=== PATIENT | female | born 1990 | race Hispanic/Latino ===

== ENCOUNTER 2018-01-31 23:40 | Observation (INO) | payer OTHER ==
[2018-02-01] MEDS ORDERED: Sodium Chloride 0.9% 1,000 ML IV STA (00:21)
--- NOTE | 2018-02-01 00:26 | ED PDOC ---
Arrival/HPI - General Chief Complaint: Abdominal Pain Time Seen by Provider: 02/01/18 00:12 Historian: Patient - History of Present Illness Narrative History of Present Illness (Text): 02/01/18 00:23 This 27 yo female with pmh GERD, presents to this Emergency department complaining of walt-umbilical and epigastric abdominal pain since this morning. Patient stated pain has worsen 2 hours ago with nausea. Patient noted 3 episodes of watery diarrhea this morning, but it has resolved. Patient denies vomiting, sob, cp, urinary symptoms, vaginal discharge or dizziness. Time/Duration: Other (see hpi) Quality: Aching Context: Home Past Medical History - Provider Review Nursing Documentation Reviewed: Yes - Tetanus Immunization Tetanus Immunization: Unknown - Past Medical History Past Medical History: No Previous - Psychiatric Hx Psychophysiologic Disorder: No Hx Substance Use: No - Surgical History Other/Comment: CYST REMOVED FRO L WRIST - Suicidal Assessment Feels Threatened In Home Enviroment: No Family/Social History - Physician Review Nursing Documentation Reviewed: Yes Family/Social History: Other (noncontributory) Smoking Status: Never Smoked Hx Alcohol Use: Yes Frequency of alcohol use: Socially Hx Substance Use: No Hx Substance Use Treatment: No Allergies/Home Meds Allergies/Adverse Reactions: Allergies ceftriaxone [From Rocephin] Allergy (Verified 02/01/18 00:17) RASH Home Medications: Home Meds Medication Instructions Recorded Confirmed Levocetirizine Dihydrochloride 5 mg PO DAILY 02/01/18 02/01/18 [Xyzal] Norgestimate-Ethinyl Estradiol 1 tab PO DAILY 02/01/18 02/01/18 [Tri-Sprintec 28 35 Mcg-0.25 mg] Review of Systems - Review of Systems Constitutional: Normal. absent: Fatigue, Weight Change, Fevers Eyes: Normal ENT: Normal Respiratory: Normal. absent: SOB, Cough, Sputum Cardiovascular: Normal. absent: Chest Pain Gastrointestinal: Abdominal Pain, Diarrhea, Nausea. absent: Vomiting Genitourinary Female: Normal. absent: Dysuria, Frequency, Hematuria Musculoskeletal: Normal Skin: Normal Neurological: Normal. absent: Headache, Dizziness, Focal Weakness, Gait Changes , Speech Changes Endocrine: Normal Hemo/Lymphatic: Normal Psychiatric: Normal Physical Exam Vital Signs Temp Pulse Resp BP Pulse Ox 02/01/18 00:11 98.0 F 81 18 135/77 100 Temperature: Afebrile Blood Pressure: Normal Pulse: Regular Respiratory Rate: Normal Appearance: Positive for: Well-Appearing, Non-Toxic, Comfortable Pain Distress: None Mental Status: Positive for: Alert and Oriented X 3 - Systems Exam Head: Present: Atraumatic, Normocephalic Pupils: Present: PERRL Extroacular Muscles: Present: EOMI Conjunctiva: Present: Normal Mouth: Present: Moist Mucous Membranes Neck: Present: Normal Range of Motion Respiratory/Chest: Present: Clear to Auscultation, Good Air Exchange. No: Respiratory Distress, Accessory Muscle Use Cardiovascular: Present: Regular Rate and Rhythm, Normal S1, S2. No: Murmurs Abdomen: Present: Tenderness (Mild epigastric tenderness.). No: Distention, Peritoneal Signs, Rebound, Guarding, Hernias Back: Present: Normal Inspection. No: CVA Tenderness Upper Extremity: Present: Normal Inspection. No: Cyanosis, Edema Lower Extremity: Present: Normal Inspection. No: Edema Neurological: Present: GCS=15, CN II-XII Intact, Speech Normal Skin: Present: Warm, Dry, Normal Color. No: Rashes Psychiatric: Present: Alert, Oriented x 3, Normal Insight, Normal Concentration Medical Decision Making ED Course and Treatment: 02/01/18 01:52 I spoke with ophthalmology surgical technician regarding patient history, physical exam finding , lab result, and CT finding. She stated she will see patient. 02/01/18 03:[address] Maryellen Canada regarding patient history, physical exam, labs, and CT results. She agreed with plan for admission. She also is aware ophthalmology surgical technician will see patient. 02/01/18 03:31 Patient agreed with plan for admission Re-evaluation Time: 03:31 Reassessment Condition: Re-examined, Improving,but remains with symptoms - Lab Interpretations Lab Results: 02/01/18 00:33 02/01/18 00:33 Lab Results 02/01/18 00:33: Sodium 142, Potassium 4.0, Chloride 104, Carbon Dioxide 25, Anion Gap 17, BUN 11, Creatinine 0.8, Est GFR ( Amer) > 60, Est GFR (Non- Af Amer) > 60, Random Glucose 112 H, Calcium 9.1, Magnesium 1.8, Total Bilirubin 0.5, AST 51 H, ALT 43, Alkaline Phosphatase 77, Total Protein 7.6, Albumin 4.3, Globulin 3.3, Albumin/Globulin Ratio 1.3, Lipase 42 02/01/18 00:33: WBC 13.4 H D, RBC 5.08, Hgb 14.0, Hct 40.9, MCV 80.5, MCH 27.6, MCHC 34.2, RDW 13.1, Plt Count 289, MPV 10.3, Gran % 72.6 H, Lymph % (Auto) 21.7 L, [place] % (Auto) 3.0, Eos % (Auto) 2.6, Baso % (Auto) 0.1, Gran # 9.69 H, Lymph # (Auto) 2.9, [place] # (Auto) 0.4, Eos # (Auto) 0.4, Baso # (Auto) 0.02 02/01/18 00:25: Urine Color Yellow, Urine Appearance Sl cloudy, Urine pH 6.0, Ur Specific [place] >= 1.030, Urine Protein >=300 H, Urine Glucose (UA) Negative , Urine Ketones Trace H, Urine Blood Negative, Urine Nitrate Negative, Urine Bilirubin Small H, Urine Urobilinogen 1.0 H, Ur Leukocyte Esterase Trace H, Urine RBC 0 - 2, Urine WBC 1 - 3, Ur Epithelial Cells Many, Urine Bacteria Small , Urine HCG, Qual Negative I have reviewed the lab results: Yes Interpretation: Abnormal lab values - RAD Interpretation Narrative RAD Interpretations (Text): 02/01/18 03:18 FINDINGS: LUNG BASES: No significant abnormality seen. ABDOMEN: LIVER: No acute abnormality of the liver identified. GALLBLADDER AND BILE DUCTS: No CT evidence of acute cholecystitis. No evidence of significant biliary ductal dilatation. PANCREAS: No CT evidence of acute pancreatitis. SPLEEN: No acute abnormality of the spleen identified. ADRENALS: No acute abnormality of the adrenal glands identified. KIDNEYS AND URETERS: No acute abnormality of the kidneys identified. No evidence of significant hydrouereteronephrosis. STOMACH AND BOWEL: Marked, diffuse wall thickening of the distal ileum, including the terminal ileum, highly suspicious for enteritis. There is adjacent fluid and fat stranding, compatible with inflammation, in the right lower abdomen and pelvis. The distal and terminal ileum are mildly dilated, most compatible with an associated mild ileus. The remainder of the small bowel appears nondilated, with no evidence of a diffuse small bowel obstruction. Otherwise, no significant abnormality of the bowel is identified. No acute abnormality of the stomach or duodenum identified. No evidence of diffuse colitis/pancolitis. No evidence of pneumatosis intestinalis. PELVIS: APPENDIX: Normal appendix is not seen, and there are postsurgical changes near the cecum, which are likely from prior appendectomy. Recommend clinical correlation. BLADDER: No acute abnormality of the bladder identified. REPRODUCTIVE:No acute abnormality of the reproductive organs is seen. No acute abnormality of the uterus identified. No evidence of large adnexal masses. ABDOMEN and PELVIS: INTRAPERITONEAL SPACE: Moderate amount of pelvic free fluid, more than expected on a physiologic basis. Small amount of free fluid in the right abdomen. No evidence of free air. BONES/JOINTS: No acute fractures or other acute bony abnormality noted. SOFT TISSUES: No acute abnormality of the visualized soft tissues is seen. VASCULATURE: No evidence of abdominal aortic aneurysm. No evidence of periaortic hemorrhage. LYMPH NODES: No evidence of diffuse lymphadenopathy. IMPRESSION: - Findings highly suspicious for diffuse, marked enteritis involving the distal ileum, including the terminal ileum. Crohn's enteritis is a possibility, in a patient of this age. Infectious enteritis is also in the differential diagnosis. - Small to moderate amount of pelvic and abdominal free fluid. - See above for remaining findings. Radiology Orders: 02/01/18 00:21 ABD & PELVIS IV CONTRAST ONLY [CT] Stat - Medication Orders Current Medication Orders: Discontinued Medications Sodium Chloride (Sodium Chloride 0.9%) 1,000 mls @ 1,000 mls/hr IV .Q1H STA Stop: 02/01/18 01:20 Last Admin: 02/01/18 00:39 Dose: 1,000 mls/hr eMAR Start Stop Document 02/01/18 00:39 CNR (Rec: 02/01/18 00:39 CNR [id number]) Intravenous Solution Start Date 02/01/18 Start Time 00:39 Ketorolac Tromethamine (Toradol) 15 mg IVP STAT STA Stop: 02/01/18 00:23 Last Admin: 02/01/18 00:38 Dose: 15 mg MAR Pain Assessment Document 02/01/18 00:38 CNR (Rec: 02/01/18 00:38 CNR [id number]) Pain Reassessment Is this a pain reassessment? No IVP Administration Document 02/01/18 00:38 CNR (Rec: 02/01/18 00:38 CNR [id number]) Charges for Administration # of IVP Administrations 1 Ondansetron HCl (Zofran Inj) 4 mg IVP STAT STA Stop: 02/01/18 00:22 Last Admin: 02/01/18 00:39 Dose: 4 mg IVP Administration Document 02/01/18 00:39 CNR (Rec: 02/01/18 00:39 CNR [id number]) Charges for Administration # of IVP Administrations 1 Pantoprazole Sodium (Protonix Inj) 40 mg IVP STAT STA Stop: 02/01/18 00:22 Last Admin: 02/01/18 00:39 Dose: 40 mg IVP Administration Document 02/01/18 00:39 CNR (Rec: 02/01/18 00:39 CNR [id number]) Charges for Administration # of IVP Administrations 1 Disposition/Present on Arrival - Present on Arrival Any Indicators Present on Arrival: No History of DVT/PE: No History of Uncontrolled Diabetes: No Urinary Catheter: No History of Decub. Ulcer: No History Surgical Site Infection Following: None - Disposition Have Diagnosis and Disposition been Completed?: Yes Diagnosis: Abdominal pain, Leukocytosis, Infectious enteritis Disposition: HOSPITALIZED Disposition Time: 03:33 Patient Plan: Admission Condition: STABLE Forms: [employer] (Maldivian)
[2018-02-01 00:58] LABS: BASO # 0.02 K/mm3 (0.0-2.0); BASO % 0.1 % (0.0-3.0); EOS # 0.4 (0.0-0.7); EOS % 2.6 % (1.5-5.0); GRAN # 9.69 (1.4-6.5); GRAN % 72.6 % (50.0-68.0); LYMPH # 2.9 (1.2-3.4); LYMPH % 21.7 % (22.0-35.0); MEAN CELL VOLUME 80.5 fl (80.0-105.0); MEAN CORPUSCULAR HEMOGLOBIN 27.6 pg (25.0-35.0); MEAN CORPUSCULAR HGB CONC 34.2 g/dl (31.0-37.0); MEAN PLATELET VOLUME 10.3 fl (7.0-11.0); MONO # 0.4 (0.1-0.6); RBC 5.08 10^6/uL (3.5-6.1); RED CELL DISTRIBUTION WIDTH 13.1 % (11.5-14.5); WHITE BLOOD COUNT 13.4 10^3/ul (4.5-11.0)
[2018-02-01 01:05] LABS: URINE BILIRUBIN SMALL (NEGATIVE); URINE BLOOD NEGATIVE (NEGATIVE); URINE GLUCOSE (UA) NEGATIVE (NEGATIVE); URINE LEUKOCYTE ESTERASE TRACE Leu/uL (NEGATIVE); URINE PROTEIN >=300 mg/dL (<30 mg/dL)
[2018-02-01 01:11] LABS: ALB/GLOB RATIO 1.3 (1.1-1.8); ALBUMIN 4.3 g/dL (3.0-4.8); ALT/SGPT 43 U/L (7-56); AST/SGOT 51 U/L (14-36); BLOOD UREA NITROGEN 11 mg/dL (7-21); CALCIUM 9.1 mg/dL (8.4-10.5); GFR AFRICAN-AMERICAN > 60; GFR NON-AFRICAN AMERICAN > 60; LIPASE 42 U/L (23-300)
[2018-02-01 01:12] LABS: HCG,QUALITATIVE URINE NEGATIVE (NEGATIVE)
[2018-02-01 01:13] LABS: URINE APPEARANCE SL CLOUDY (CLEAR); URINE COLOR YELLOW (YELLOW)
[2018-02-01 01:18] LABS: URINE BACTERIA SMALL (NEG); URINE EPITHELIAL CELLS MANY /hpf (0-5); URINE RBC 0 - 2 /hpf (0-2)
[2018-02-01] MEDS ORDERED: Iohexol 350 MG/100 ML VIAL ONE (01:19)
--- NOTE | 2018-02-01 03:03 | CT ---
EXAM: CT Abdomen and Pelvis With Intravenous Contrast EXAM DATE/TIME: 02/01/2018 12:21 AM CLINICAL HISTORY: 27 years old, female; Pain; Abdominal pain; Generalized; Additional info: Abd. Pain TECHNIQUE: Axial computed tomography images of the abdomen and pelvis with intravenous contrast. All CT scans at this facility use one or more dose reduction techniques, viz.: automated exposure control; ma/kV adjustment per patient size (including targeted exams where dose is matched to indication; i.e. head); or iterative reconstruction technique. Coronal and sagittal reformatted images were created and reviewed. CONTRAST: 96 mL of OMNI 350 administered intravenously. COMPARISON: No relevant prior studies available. FINDINGS: LUNG BASES: No significant abnormality seen. ABDOMEN: LIVER: No acute abnormality of the liver identified. GALLBLADDER AND BILE DUCTS: No CT evidence of acute cholecystitis. No evidence of significant biliary ductal dilatation. PANCREAS: No CT evidence of acute pancreatitis. SPLEEN: No acute abnormality of the spleen identified. ADRENALS: No acute abnormality of the adrenal glands identified. KIDNEYS AND URETERS: No acute abnormality of the kidneys identified. No evidence of significant hydrouereteronephrosis. STOMACH AND BOWEL: Marked, diffuse wall thickening of the distal ileum, including the terminal ileum, highly suspicious for enteritis. There is adjacent fluid and fat stranding, compatible with inflammation, in the right lower abdomen and pelvis. The distal and terminal ileum are mildly dilated, most compatible with an associated mild ileus. The remainder of the small bowel appears nondilated, with no evidence of a diffuse small bowel obstruction. Otherwise, no significant abnormality of the bowel is identified. No acute abnormality of the stomach or duodenum identified. No evidence of diffuse colitis/pancolitis. No evidence of pneumatosis intestinalis. PELVIS: APPENDIX: Normal appendix is not seen, and there are postsurgical changes near the cecum, which are likely from prior appendectomy. Recommend clinical correlation. BLADDER: No acute abnormality of the bladder identified. REPRODUCTIVE:No acute abnormality of the reproductive organs is seen. No acute abnormality of the uterus identified. No evidence of large adnexal masses. ABDOMEN and PELVIS: INTRAPERITONEAL SPACE: Moderate amount of pelvic free fluid, more than expected on a physiologic basis. Small amount of free fluid in the right abdomen. No evidence of free air. BONES/JOINTS: No acute fractures or other acute bony abnormality noted. SOFT TISSUES: No acute abnormality of the visualized soft tissues is seen. VASCULATURE: No evidence of abdominal aortic aneurysm. No evidence of periaortic hemorrhage. LYMPH NODES: No evidence of diffuse lymphadenopathy. IMPRESSION: - Findings highly suspicious for diffuse, marked enteritis involving the distal ileum, including the terminal ileum. Crohn's enteritis is a possibility, in a patient of this age. Infectious enteritis is also in the differential diagnosis. - Small to moderate amount of pelvic and abdominal free fluid. - See above for remaining findings.
[2018-02-01] MEDS ORDERED: Ciprofloxacin 400mg/200ml D5W 400 MG/200 ML BAG IVPB STA (03:22)
[2018-02-01] MEDS ORDERED: metroNIDAZOLE IV 500 mg/100 ml 500 MG/100 ML BAG IVPB STA (03:26)
--- NOTE | 2018-02-01 04:09 | CP.PCM.HP ---
History of Present Illness - History of Present Illness History of Present Illness: 27 year old female with a past medical history of seasonal allergies, gastritis , miscarriage (2015 at 6 weeks) who presents with one day of periumbilical pain , 3 episodes of diarrhea, and nausea. She reports at 8:00 AM developing abdominal pain and nausea when eating her breakfast. This was followed by two episodes of diarrhea. The pain waxed and waned throughout the day and then later recurred at 10:00 PM and therefore she came to the ED. She reports only tolerating crackers, and even in eating those she had nausea and abdominal pain. She took Zantac which did not relieve her symptoms. She reports going out for two events this weekend, a baby shower and another event yesterday in which she drank 5-6 orange budlights. She denies any relieving factors and only states that eating food is an exacerbating factor. She reports having her last period 4 weeks ago. She reports crampy abdominal pain around around her period for which she takes advil for. She reports no fever, chills, vomiting, vaginal bleeding as of yet. She denies any sick contacts, recent travel, chronic constipation, but does admit to eat something out of the ordinary this past weekend. She reports seeing her water pollution specialist annually and having no female problems. 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 Medina Present on Admission - Present on Admission Any Indicators Present on Admission: No Review of Systems - Review of Systems All systems: reviewed and no additional remarkable complaints except (as per HPI ) Past Patient History - Tetanus Immunizations Tetanus Immunization: Unknown - Past Social History Smoking Status: Never Smoked - PSYCHIATRIC Hx Psychophysiologic Disorder: No Hx Substance Use: No - SURGICAL HISTORY Other/Comment: CYST REMOVED FRO L WRIST Meds Allergies/Adverse Reactions: Allergies Allergy/AdvReac Type Severity Reaction Status Date / Time ceftriaxone [From Rocephin] Allergy RASH Verified 02/01/18 00:17 Physical Exam - Constitutional Appears: Non-toxic, No Acute Distress - Head Exam Head Exam: ATRAUMATIC, NORMOCEPHALIC - Eye Exam Eye Exam: EOMI, Normal appearance - ENT Exam ENT Exam: Mucous Membranes Dry, Normal Oropharynx - Neck Exam Neck exam: Positive for: Normal Inspection - Respiratory Exam Respiratory Exam: Clear to Auscultation Bilateral, NORMAL BREATHING PATTERN. absent: Accessory Muscle Use - Cardiovascular Exam Cardiovascular Exam: Tachycardia, RRR, +S1, +S2 - GI/Abdominal Exam GI & Abdominal Exam: Normal Bowel Sounds, Tenderness (RLQ, negative Wheeler's). absent: Distended, Guarding, Organomegaly, Rebound - Extremities Exam Extremities exam: Positive for: normal inspection - Back Exam Back exam: NORMAL INSPECTION - Neurological Exam Neurological exam: Alert, CN II-XII Intact, Oriented x3 - Psychiatric Exam Psychiatric exam: Normal Affect, Normal Mood - Skin Skin Exam: Dry, Intact, Normal Color, Warm Results - Vital Signs Recent Vital Signs: Last Vital Signs Temp 98.0 F 02/01/18 00:11 Pulse 81 02/01/18 00:11 Resp 18 02/01/18 00:11 BP 135/77 02/01/18 00:11 Pulse Ox 100 02/01/18 00:11 - Labs Result Diagrams: 02/01/18 00:33 02/01/18 00:33 Assessment & Plan - Assessment and Plan (Free Text) Assessment: 27 year old female with a past medical history of seasonal allergies, gastritis , and miscarriage who presents with nausea, periumbilical pain, and 3 episodes of diarrhea. She was found to have a leukocytosis and CT findings concerning for an enteritis. In the ED she was started on antiemetics, Toradol, fluids, Flagyl, and Ciprfloxacin. Surgery was consulted given the constellation of signs and symptoms could represent an appendicitis while GI was consulted given the inflammation seen in the terminal illeum and the patient's age. Plan: 1) Leukocytosis, periumbilical pain, diarrhea, nausea with tenderness in the right lower quadrant - Ciprofloxacin 400 mg IVP q12h - Metronidazole 500 mg IVP q8h - Surgery consulted, Dr. Olea - NPO except for medications - Morphine 2 mg q4h for severe pain - Morphine 1 mg q4h for moderate pain - Tylenol 650 mg for mild pain - Zofran 4 mg q6h PRN for nausea 2) Terminal illeitis, possible Crohn's or infectious enteritis - Fecal leukocytes, fecal culture, FOBT - ESR - GI consulted, Dr. Yasmine Carmichael 3) GI/DVT prophylaxis - Protonix - SCD Case reviewed and discussed Dr. Joselin Canada - Date & Time Date: 02/01/18 Time: 04:50
[2018-02-01] MEDS ORDERED: Morphine 4 mg/ml ISec IVP PRN ×2 (04:30)
[2018-02-01] MEDS ORDERED: Sodium Chloride 0.9% 1,000 ML IV SCH (05:00)
[2018-02-01] MEDS: metroNIDAZOLE IV 500 mg/100 ml 500 MG/100 ML BAG IVPB SCH ×3 (05:18→21:42)
[2018-02-01 06:11] VITALS: BMI 29.2
[2018-02-01 06:59] LABS: BASO # 0.02 K/mm3 (0.0-2.0); BASO % 0.2 % (0.0-3.0); EOS # 0.1 (0.0-0.7); EOS % 1.4 % (1.5-5.0); GRAN # 7.24 (1.4-6.5); GRAN % 72.6 % (50.0-68.0); LYMPH # 2.2 (1.2-3.4); LYMPH % 22.5 % (22.0-35.0); MEAN CELL VOLUME 80.4 fl (80.0-105.0); MEAN CORPUSCULAR HEMOGLOBIN 26.8 pg (25.0-35.0); MEAN CORPUSCULAR HGB CONC 33.3 g/dl (31.0-37.0); MEAN PLATELET VOLUME 9.7 fl (7.0-11.0); MONO # 0.3 (0.1-0.6); MONO % 3.3 % (1.0-6.0); RBC 4.33 10^6/uL (3.5-6.1); RED CELL DISTRIBUTION WIDTH 13.2 % (11.5-14.5)
[2018-02-01 07:12] LABS: HEMOGLOBIN 11.6 g/dL (12.0-16.0)
--- NOTE | 2018-02-01 07:33 | CP.PCM.CON ---
<Nurys Alvarado - Last Filed: 02/01/18 07:25> History of Present Illness - History of Present Illness History of Present Illness: Surgery: Dr. Olea Pt is a 27F with PMHx significant for gastritis who presented for abdominal pain & diarrhea. Pt states pain started in the epigastric area yesterday morning and as the day progressed it became constant so she came to the hospital. She admits to having similar pain in the past associated with her gastritis. She also admits to nausea at home but denies vomiting. Admits to 3 episodes of watery diet but hasn't had any more episodes since. Denies BRBPR. In the ER, pt had a CT abdomen/pelvis which showed diffuse enteritis especially involving the distal ileum. Crohn's enteritis vs infectious enteritis is a possibility. Appendix not visualized. Surgery called to evaluate. Currently, pt is resting comfortably in bed and states she feels better compared to yesterday. She states her pain is mostly resolved but she feels sore in the RLQ. Hasn't had any more episodes of diarrhea. Denies F/C. PMHx: gastritis PSHx: L wrist ganglion cyst excision All: Ceftriaxone Social: denies smoking/drugs, social EtOH Review of Systems - Review of Systems All systems: reviewed and no additional remarkable complaints except (as per HPI ) Past Patient History - Tetanus Immunizations Tetanus Immunization: Unknown - Past Social History Smoking Status: Never Smoked - CARDIAC Hx Cardiac Disorders: No - PULMONARY Hx Respiratory Disorders: No - NEUROLOGICAL Hx Neurological Disorder: No - HEENT Hx HEENT Problems: No - RENAL Hx Chronic Kidney Disease: No - ENDOCRINE/METABOLIC Hx Endocrine Disorders: No - HEMATOLOGICAL/ONCOLOGICAL Hx Blood Disorders: No - INTEGUMENTARY Hx Dermatological Problems: No - MUSCULOSKELETAL/RHEUMATOLOGICAL Hx Musculoskeletal Disorders: No Hx Falls: No - GASTROINTESTINAL Hx Gastrointestinal Disorders: Yes Hx Gastroesophageal Reflux: Yes Other/Comment: gastritis - GENITOURINARY/GYNECOLOGICAL Hx Genitourinary Disorders: No - PSYCHIATRIC Hx Psychophysiologic Disorder: No Hx Substance Use: No - SURGICAL HISTORY Hx Surgeries: Yes Other/Comment: CYST REMOVED FROM L WRIST Meds Allergies/Adverse Reactions: Allergies Allergy/AdvReac Type Severity Reaction Status Date / Time ceftriaxone [From Rocephin] Allergy RASH Verified 02/01/18 00:17 - Medications Medications: Current Medications Acetaminophen (Tylenol 325mg Tab) 650 mg PO Q6H PRN PRN Reason: Pain, Mild (1-3) Ciprofloxacin (Cipro 400mg/200ml Dsw) 400 mg in 200 mls @ 133.3 mls/hr IVPB Q12H PRACHI PRN Reason: Protocol Stop: 02/01/18 18:31 Metronidazole (Flagyl) 500 mg in 100 mls @ 100 mls/hr IVPB Q8 PRACHI PRN Reason: Protocol Last Admin: 02/01/18 05:18 Dose: Not Given Sodium Chloride (Sodium Chloride 0.9%) 1,000 mls @ 100 mls/hr IV .Q10H [facility] Last Admin: 02/01/18 05:21 Dose: 100 mls/hr Morphine Sulfate (Morphine) 2 mg IVP Q4H PRN PRN Reason: Pain, severe (8-10) Morphine Sulfate (Morphine) 1 mg IVP Q4H PRN PRN Reason: Pain, moderate (4-7) Ondansetron HCl (Zofran Inj) 4 mg IVP Q6H PRN PRN Reason: Nausea/Vomiting Pantoprazole Sodium (Protonix Inj) 40 mg IVP DAILY [facility] Physical Exam - Constitutional Appears: Well, No Acute Distress - Head Exam Head Exam: ATRAUMATIC, NORMOCEPHALIC - Eye Exam Eye Exam: Normal appearance - ENT Exam ENT Exam: Mucous Membranes Moist - Respiratory Exam Respiratory Exam: NORMAL BREATHING PATTERN - Cardiovascular Exam Cardiovascular Exam: RRR - GI/Abdominal Exam GI & Abdominal Exam: Soft, Tenderness (to deep palpation in the RLQ/suprapubic area). absent: Distended, Guarding, Rebound - Neurological Exam Neurological exam: Alert, Oriented x3 - Skin Skin Exam: Dry, Warm Results - Vital Signs Recent Vital Signs: Last Vital Signs Temp 98.0 F 02/01/18 00:11 Pulse 75 02/01/18 04:47 Resp 18 02/01/18 05:59 BP 147/86 02/01/18 04:47 Pulse Ox 98 02/01/18 04:47 - Labs Result Diagrams: 02/01/18 06:55 02/01/18 00:33 Labs: Laboratory Results - last 24 hr 02/01/18 06:55 WBC 10.0 D RBC 4.33 Hgb 11.6 L D Hct 34.8 L MCV 80.4 MCH 26.8 MCHC 33.3 RDW 13.2 Plt Count 236 MPV 9.7 Gran % 72.6 H Lymph % (Auto) 22.5 [place] % (Auto) 3.3 Eos % (Auto) 1.4 L Baso % (Auto) 0.2 Gran # 7.24 H Lymph # (Auto) 2.2 [place] # (Auto) 0.3 Eos # (Auto) 0.1 Baso # (Auto) 0.02 - Imaging and Cardiology CT scan - abdomen Status: Image reviewed by me, Report reviewed by me Assessment & Plan - Assessment and Plan (Free Text) Assessment: 27F with abdominal pain & enteritis; infectious vs inflammatory Plan: - Keep NPO with IVF - IV ABX - f/u GI recs - ADAT per GI - no surgical intervention at this time; will continue to monitor - d/w Dr. Lefty Alvarado, PGY-3 <Domenico Olea - Last Filed: 02/01/18 19:51> Meds - Medications Medications: Current Medications Acetaminophen (Tylenol 325mg Tab) 650 mg PO Q6H PRN PRN Reason: Pain, Mild (1-3) Metronidazole (Flagyl) 500 mg in 100 mls @ 100 mls/hr IVPB Q8 PRACHI PRN Reason: Protocol Last Admin: 02/01/18 13:28 Dose: 100 mls/hr Sodium Chloride (Sodium Chloride 0.9%) 1,000 mls @ 100 mls/hr IV .Q10H [facility] Last Admin: 02/01/18 05:21 Dose: 100 mls/hr Morphine Sulfate (Morphine) 2 mg IVP Q4H PRN PRN Reason: Pain, severe (8-10) Morphine Sulfate (Morphine) 1 mg IVP Q4H PRN PRN Reason: Pain, moderate (4-7) Ondansetron HCl (Zofran Inj) 4 mg IVP Q6H PRN PRN Reason: Nausea/Vomiting Results - Vital Signs Recent Vital Signs: Last Vital Signs Temp 98 F 02/01/18 17:39 Pulse 92 H 02/01/18 17:39 Resp 18 02/01/18 17:39 BP 115/70 02/01/18 17:39 Pulse Ox 100 02/01/18 17:39 - Labs Result Diagrams: 02/01/18 06:55 02/01/18 00:33 Labs: Laboratory Results - last 24 hr 02/01/18 06:55 WBC 10.0 D RBC 4.33 Hgb 11.6 L D Hct 34.8 L MCV 80.4 MCH 26.8 MCHC 33.3 RDW 13.2 Plt Count 236 MPV 9.7 Gran % 72.6 H Lymph % (Auto) 22.5 [place] % (Auto) 3.3 Eos % (Auto) 1.4 L Baso % (Auto) 0.2 Gran # 7.24 H Lymph # (Auto) 2.2 [place] # (Auto) 0.3 Eos # (Auto) 0.1 Baso # (Auto) 0.02 ESR 9 Attending/Attestation - Attestation I have personally seen and examined this patient.: Yes I have fully participated in the care of the patient.: Yes I have reviewed all pertinent clinical information: Yes Notes (Text): Pt was seen and examined at bedside Agree with above note and assessment Pt with diarrhea and abdominal pain and tenderness Labs and radiology reviewed Ass: Enteritis, No evidence of Appendicitis Plan: IV antibiotics Clear liquid diet No acute general surgical intervention required Plan d.w pt and primary team in detail Risk and benefit explained in detail.
--- NOTE | 2018-02-01 11:08 | US ---
HISTORY: abdominal pain, leukocytosis, diarrhea COMPARISON: None. TECHNIQUE: Sonographic evaluation of the abdomen. FINDINGS: LIVER: Measures 17.2 cm. Normal echogenicity of the liver parenchyma. No mass. No intrahepatic bile duct dilatation. GALLBLADDER: Unremarkable. No gallstones. COMMON BILE DUCT: Measures 5.3 mm. No stones. No dilatation. PANCREAS: Unremarkable as visualized. No mass. No ductal dilatation. RIGHT KIDNEY: Measures 10.5 x 3.6 x 3.9cm. Normal echogenicity. No calculus, mass, or hydronephrosis. LEFT KIDNEY: Measures 10.7 x 4.4 x 4.5cm. Normal echogenicity. No calculus, mass, or hydronephrosis. SPLEEN: Normal in size and contour. No mass. AORTA: No aneurysmal dilatation. IVC: Unremarkable. OTHER FINDINGS: None. IMPRESSION: Unremarkable abdominal sonogram.
--- NOTE | 2018-02-01 13:17 | CP.PCM.PN ---
<Mayito Mcclellan - Last Filed: 02/01/18 13:11> Subjective - Date & Time of Evaluation Date of Evaluation: 02/01/18 Time of Evaluation: 13:11 - Subjective Subjective: Patient seen and examined at bedside. Doing well with no complaints at this time. Belly pain has almost completely resolved. No nausea, vomiting or diarrhea. GI wants patient to stay another day to reevaluate. Abdominal US negative. Continue IV Abx at this time. Patient understood the plan and her questions where answered. Mother at bedside. Objective - Vital Signs/Intake and Output Vital Signs (last 24 hours): Temp Pulse Resp BP Pulse Ox 98.8 F 74 20 122/68 99 02/01/18 08:00 02/01/18 08:00 02/01/18 08:00 02/01/18 08:00 02/01/18 08:00 - Medications Medications: Current Medications Acetaminophen (Tylenol 325mg Tab) 650 mg PO Q6H PRN PRN Reason: Pain, Mild (1-3) Ciprofloxacin (Cipro 400mg/200ml Dsw) 400 mg in 200 mls @ 133.3 mls/hr IVPB Q12H PRACHI PRN Reason: Protocol Stop: 02/01/18 18:31 Metronidazole (Flagyl) 500 mg in 100 mls @ 100 mls/hr IVPB Q8 PRACHI PRN Reason: Protocol Last Admin: 02/01/18 05:18 Dose: Not Given Sodium Chloride (Sodium Chloride 0.9%) 1,000 mls @ 100 mls/hr IV .Q10H [facility] Last Admin: 02/01/18 05:21 Dose: 100 mls/hr Morphine Sulfate (Morphine) 2 mg IVP Q4H PRN PRN Reason: Pain, severe (8-10) Morphine Sulfate (Morphine) 1 mg IVP Q4H PRN PRN Reason: Pain, moderate (4-7) Ondansetron HCl (Zofran Inj) 4 mg IVP Q6H PRN PRN Reason: Nausea/Vomiting - Labs Labs: 02/01/18 06:55 - Constitutional Appears: Well - Head Exam Head Exam: ATRAUMATIC, NORMAL INSPECTION, NORMOCEPHALIC - Eye Exam Eye Exam: EOMI, Normal appearance, PERRL Pupil Exam: NORMAL ACCOMODATION, PERRL - ENT Exam ENT Exam: Mucous Membranes Moist, Normal Exam - Neck Exam Neck Exam: Full ROM, Normal Inspection. absent: Lymphadenopathy - Respiratory Exam Respiratory Exam: Clear to Ausculation Bilateral, NORMAL BREATHING PATTERN - Cardiovascular Exam Cardiovascular Exam: REGULAR RHYTHM, +S1, +S2. absent: Murmur - GI/Abdominal Exam GI & Abdominal Exam: Soft, Tenderness (mild tenderness in the periumbilcal region as well as the RLQ), Normal Bowel Sounds - Extremities Exam Extremities Exam: Full ROM, Normal Capillary Refill, Normal Inspection. absent : Joint Swelling, Pedal Edema - Back Exam Back Exam: NORMAL INSPECTION - Neurological Exam Neurological Exam: Alert, Awake, CN II-XII Intact, Normal Gait, Oriented x3 - Psychiatric Exam Psychiatric exam: Normal Affect, Normal Mood - Skin Skin Exam: Dry, Intact, Normal Color, Warm Assessment and Plan (1) Gastroenteritis Assessment & Plan: GI (Jany) Surgery (Lefty) - continue IV antibiotics. No intervention at this point. CT shows diffuse enteritits Abdominal US Normal Cipro/Flagyl Zofran/Morphine Status: Acute <Amanda Canada B - Last Filed: 02/03/18 13:07> Objective - Vital Signs/Intake and Output Vital Signs (last 24 hours): Temp Pulse Resp BP Pulse Ox 98.0 F 75 20 118/78 98 02/02/18 06:00 02/02/18 06:00 02/02/18 06:00 02/02/18 06:00 02/02/18 06:00 - Labs Labs: 02/02/18 06:00 02/02/18 06:00 Attending/Attestation - Attestation I have personally seen and examined this patient.: Yes I have fully participated in the care of the patient.: Yes I have reviewed all pertinent clinical information, including history, physical exam and plan: Yes Notes (Text): I have seen and examined the patient at bedside. Agree with the above note with the following additions/ exceptions: Briefly this is 27 F w h/o gastritis who came last night for 1 day h/o nausea, abdominal pain and diarrhea. CT revealed terminal ileitis on cipro and flagyl. Discussed with GI who recommended to continue IV antibiotics.
--- NOTE | 2018-02-01 15:49 | CP.PCM.CON ---
History of Present Illness - History of Present Illness History of Present Illness: Seen and examined at the bedside earlier this morning, chart review. Request for GI consult is for infectious enteritis. HPI: This is a 27-year-old female with a past medical history of gastritis, seasonal allergies came to the emergency room with complaints of worsening abdominal pain. The patient endorsed that she awoke yesterday morning with abdominal pain, took Pepto-Bismol with no relief and had 3 episodes of diarrhea. Then around 10 PM in the evening the pain became more consistent. She did have nausea but no reports of vomiting. Patient also took some Zantac with no relief. Denies any recent travel or sick contacts. She had 2 parties that she intended this weekend, her sister's baby shower which she ate at a [email or web address] and on Wednesday a alliance party at her [email or web address]'s, [employer], she only recalls drinking a new beer which he had 4 or 5 drinks but no contributing foods. No complaints of any fever or chills. She hasn't had any episodes of diarrhea since admission but did report in the emergency room she had a formed stool which appeared darker but no bright bright blood. On admission her abdominal pain was 10 out of 10 this morning is 2/10, she hasn't had any pain medication since in the emergency room. She denies any change in bowel habits, her usual bowel habits is bowel movement at least every 2 days denies any weight loss or loss of appetite. Never had endoscopy or colonoscopy. On admission she had a CT scan of abdomen and pelvis with IV contrast and this reported thickening in the terminal ileum, infectious versus Crohn's. Past medical history: Is miscarriage in 2015, gastritis, seasonal allergies Past surgical history left ganglion cyst removed on her wrist at age 5, denies any abdominal or cardiac procedures Dictations: Reviewed as per MAR Family history: Mother with diabetes mellitus type 2, atrial fibrillation and COPD: Father with Matias, hypertension, grandfather with colon cancer/family history of GERD Social history: Drinks alcohol socially but not excessively, denies tobacco use or illicit drugs Allergies: Ceftriaxone ROS: Systems reviewed with positive finding see HPI Abdominal US: no GB stones, no CBD stones, CBD: 5.3mm Past Patient History - Tetanus Immunizations Tetanus Immunization: Unknown - Past Social History Smoking Status: Never Smoked - CARDIAC Hx Cardiac Disorders: No - PULMONARY Hx Respiratory Disorders: No - NEUROLOGICAL Hx Neurological Disorder: No - HEENT Hx HEENT Problems: No - RENAL Hx Chronic Kidney Disease: No - ENDOCRINE/METABOLIC Hx Endocrine Disorders: No - HEMATOLOGICAL/ONCOLOGICAL Hx Blood Disorders: No - INTEGUMENTARY Hx Dermatological Problems: No - MUSCULOSKELETAL/RHEUMATOLOGICAL Hx Musculoskeletal Disorders: No Hx Falls: No - GASTROINTESTINAL Hx Gastrointestinal Disorders: Yes Hx Gastroesophageal Reflux: Yes Other/Comment: gastritis - GENITOURINARY/GYNECOLOGICAL Hx Genitourinary Disorders: No - PSYCHIATRIC Hx Psychophysiologic Disorder: No Hx Substance Use: No - SURGICAL HISTORY Hx Surgeries: Yes Other/Comment: CYST REMOVED FROM L WRIST Meds Allergies/Adverse Reactions: Allergies Allergy/AdvReac Type Severity Reaction Status Date / Time ceftriaxone [From Rocephin] Allergy RASH Verified 02/01/18 00:17 - Medications Medications: Current Medications Acetaminophen (Tylenol 325mg Tab) 650 mg PO Q6H PRN PRN Reason: Pain, Mild (1-3) Ciprofloxacin (Cipro 400mg/200ml Dsw) 400 mg in 200 mls @ 133.3 mls/hr IVPB Q12H PRACHI PRN Reason: Protocol Stop: 02/01/18 18:31 Metronidazole (Flagyl) 500 mg in 100 mls @ 100 mls/hr IVPB Q8 PRACHI PRN Reason: Protocol Last Admin: 02/01/18 05:18 Dose: Not Given Sodium Chloride (Sodium Chloride 0.9%) 1,000 mls @ 100 mls/hr IV .Q10H [facility] Last Admin: 02/01/18 05:21 Dose: 100 mls/hr Morphine Sulfate (Morphine) 2 mg IVP Q4H PRN PRN Reason: Pain, severe (8-10) Morphine Sulfate (Morphine) 1 mg IVP Q4H PRN PRN Reason: Pain, moderate (4-7) Ondansetron HCl (Zofran Inj) 4 mg IVP Q6H PRN PRN Reason: Nausea/Vomiting Results - Vital Signs Recent Vital Signs: Last Vital Signs Temp 98.8 F 02/01/18 08:00 Pulse 74 02/01/18 08:00 Resp 20 02/01/18 08:00 BP 122/68 02/01/18 08:00 Pulse Ox 99 02/01/18 08:00 - Labs Result Diagrams: 02/01/18 06:55 02/01/18 00:33 Labs: Laboratory Results - last 24 hr 02/01/18 06:55 WBC 10.0 D RBC 4.33 Hgb 11.6 L D Hct 34.8 L MCV 80.4 MCH 26.8 MCHC 33.3 RDW 13.2 Plt Count 236 MPV 9.7 Gran % 72.6 H Lymph % (Auto) 22.5 [place] % (Auto) 3.3 Eos % (Auto) 1.4 L Baso % (Auto) 0.2 Gran # 7.24 H Lymph # (Auto) 2.2 [place] # (Auto) 0.3 Eos # (Auto) 0.1 Baso # (Auto) 0.02 ESR 9 Assessment & Plan - Assessment and Plan (Free Text) Assessment: Assessment: Abdominal pain, nausea/diarrhea, differentials to consider is gastroentertis, s/ p CT scan with severe thickening terminal ileum, infectious VS Crohn's History of gastritis Plan: Can start clear liquid diet Continue IV antibiotics, currently on Cipro and Flagyl, patient allergic to penicillin can consider Levaquin CT scan was reviewed with Dr. Carmichael there is increased thickening at the terminal ileum. Recommend patient to continue on IV antibiotics. Follow up stool studies Patient may benefit from elective outpatient colonoscopy when inflammation/ infection resolved. Thank you for this consult and for allowing us to participate in your patient's care, further recommendations based upon clinical course. Seen and discussed with Dr. Carmichael.
[2018-02-01] MEDS ORDERED: Ciprofloxacin 400mg/200ml D5W 400 MG/200 ML BAG IVPB SCH (17:00)
[2018-02-02] MEDS: metroNIDAZOLE IV 500 mg/100 ml 500 MG/100 ML BAG IVPB SCH (05:55)
[2018-02-02 06:20] LABS: BASO # 0.01 K/mm3 (0.0-2.0); BASO % 0.1 % (0.0-3.0); EOS # 0.3 (0.0-0.7); EOS % 4.8 % (1.5-5.0); GRAN # 3.29 (1.4-6.5); GRAN % 46.7 % (50.0-68.0); HEMOGLOBIN 11.1 g/dL (12.0-16.0); LYMPH # 3.1 (1.2-3.4); LYMPH % 43.4 % (22.0-35.0); MEAN CELL VOLUME 81.2 fl (80.0-105.0); MEAN CORPUSCULAR HEMOGLOBIN 26.4 pg (25.0-35.0); MEAN CORPUSCULAR HGB CONC 32.6 g/dl (31.0-37.0); MEAN PLATELET VOLUME 10.2 fl (7.0-11.0); MONO # 0.4 (0.1-0.6); RBC 4.2 10^6/uL (3.5-6.1); RED CELL DISTRIBUTION WIDTH 13.1 % (11.5-14.5); WHITE BLOOD COUNT 7.1 10^3/ul (4.5-11.0)
[2018-02-02 06:47] LABS: ALB/GLOB RATIO 1.2 (1.1-1.8); ALBUMIN 3.4 g/dL (3.0-4.8); ALT/SGPT 34 U/L (7-56); AST/SGOT 30 U/L (14-36); BLOOD UREA NITROGEN 5 mg/dL (7-21); CALCIUM 8.5 mg/dL (8.4-10.5); GFR AFRICAN-AMERICAN > 60; GFR NON-AFRICAN AMERICAN > 60
[2018-02-02 07:41] VITALS: BP 118/78; PULSE 75; RESP 20; TEMP 98; O2SAT 98
[2018-02-02] MEDS ORDERED: Ciprofloxacin 400mg/200ml D5W 400 MG/200 ML BAG IVPB SCH ×2 (10:00)
--- NOTE | 2018-02-02 12:59 | CP.PCM.PN ---
<Bita Ramirez - Last Filed: 02/02/18 15:31> Subjective - Date & Time of Evaluation Date of Evaluation: 02/02/18 Time of Evaluation: 13:00 - Subjective Subjective: PGY- [address] Carmichael's service Patient seen and examined at bedside. No acute distress. Patient states that she is feeling better, pain has improved. She states that she is tolerating liquid diet and does have a appetite. Objective - Vital Signs/Intake and Output Vital Signs (last 24 hours): Temp Pulse Resp BP Pulse Ox 98.0 F 75 20 118/78 98 02/02/18 06:00 02/02/18 06:00 02/02/18 06:00 02/02/18 06:00 02/02/18 06:00 Intake and Output: 02/02/18 02/02/18 06:59 18:59 Intake Total 600 Balance 600 - Medications Medications: Current Medications Metronidazole (Flagyl) 500 mg in 100 mls @ 100 mls/hr IVPB Q8 PRACHI PRN Reason: Protocol Last Admin: 02/02/18 05:55 Dose: 100 mls/hr - Labs Labs: 02/02/18 06:00 02/02/18 06:00 - Constitutional Appears: Well, No Acute Distress - Head Exam Head Exam: ATRAUMATIC, NORMAL INSPECTION, NORMOCEPHALIC - Eye Exam Eye Exam: EOMI, Normal appearance - ENT Exam ENT Exam: Mucous Membranes Moist - Respiratory Exam Respiratory Exam: Clear to Ausculation Bilateral, NORMAL BREATHING PATTERN. absent: Decreased Breath Sounds, Rales, Rhonchi, Wheezes, Respiratory Distress, Stridor - Cardiovascular Exam Cardiovascular Exam: REGULAR RHYTHM, +S1, +S2. absent: Bradycardia, Tachycardia , Murmur - GI/Abdominal Exam GI & Abdominal Exam: Soft, Normal Bowel Sounds. absent: Distended, Firm, Guarding, Tenderness, Hernia, Mass - Extremities Exam Extremities Exam: Normal Inspection. absent: Pedal Edema, Tenderness - Neurological Exam Neurological Exam: Alert, Awake, Oriented x3 - Skin Skin Exam: Dry, Intact, Normal Color, Warm Assessment and Plan - Assessment and Plan (Free Text) Assessment: 27 yo female with PMH of gastritis and seasonal allergy presented with abdominal pain, nausea/diarrhea, differentials to consider is gastroentertis, s/ p CT scan with severe thickening terminal ileum, infectious VS Crohn's Plan: Advance diet to low residual/ GI diet Continue IV antibiotics, currently on Cipro and Flagyl, patient allergic to penicillin can consider Levaquin will need to be discharged with PO antibiotics for 7-[address] scan was reviewed there is increased thickening at the terminal ileum. Recommend patient to continue on IV antibiotics. Follow up stool studies patient will need to follow up with GI outpatient, may benefit from elective outpatient colonoscopy when inflammation/infection resolved. Reviewed and discussed with Dr. Carmichael. <Yasmine Carmichael V - Last Filed: 02/02/18 23:32> Objective - Vital Signs/Intake and Output Vital Signs (last 24 hours): Temp Pulse Resp BP Pulse Ox 98.0 F 75 20 118/78 98 02/02/18 06:00 02/02/18 06:00 02/02/18 06:00 02/02/18 06:00 02/02/18 06:00 Intake and Output: 02/02/18 02/03/18 18:59 06:59 Intake Total 600 Balance 600 - Labs Labs: 02/02/18 06:00 02/02/18 06:00 Attending/Attestation - Attestation I have personally seen and examined this patient.: Yes I have fully participated in the care of the patient.: Yes I have reviewed all pertinent clinical information, including history, physical exam and plan: Yes Notes (Text): This is an addendum to GI progress report dictated by the Laboratory Monitor.The patient was seen and examined earlier. Medical records, lab studies, imagings were reviewed. Last 24 hours events reviewed. Agreed with the above treatment plan as outlined in Laboratory Monitor 's notes the with the addition of the following 02/02/18 23:32
--- NOTE | 2018-02-02 13:40 | CP.PCM.DIS ---
Provider - Provider Date of Admission: 02/01/18 03:34 Attending physician: Amanda Canada MD Primary care physician: Theresa Medina MD Consults: GI: Jany Time Spent in preparation of Discharge (in minutes): 45 Diagnosis - Discharge Diagnosis (1) Gastroenteritis Status: Acute Hospital Course - Lab Results Lab Results: Micro Results 02/01/18 04:15 Blood Blood Culture - Preliminary NO GROWTH AFTER 24 HOURS Most Recent Lab Values WBC 7.1 10^3/ul (4.5-11.0) D 02/02/18 06:00 RBC 4.20 10^6/uL (3.5-6.1) 02/02/18 06:00 Hgb 11.1 g/dL (12.0-16.0) L 02/02/18 06:00 Hct 34.1 % (36.0-48.0) L 02/02/18 06:00 MCV 81.2 fl (80.0-105.0) 02/02/18 06:00 MCH 26.4 pg (25.0-35.0) 02/02/18 06:00 MCHC 32.6 g/dl (31.0-37.0) 02/02/18 06:00 RDW 13.1 % (11.5-14.5) 02/02/18 06:00 Plt Count 242 10^3/uL (120.0-450.0) 02/02/18 06:00 MPV 10.2 fl (7.0-11.0) 02/02/18 06:00 Gran % 46.7 % (50.0-68.0) L 02/02/18 06:00 Lymph % (Auto) 43.4 % (22.0-35.0) H 02/02/18 06:00 [place] % (Auto) 5.0 % (1.0-6.0) 02/02/18 06:00 Eos % (Auto) 4.8 % (1.5-5.0) 02/02/18 06:00 Baso % (Auto) 0.1 % (0.0-3.0) 02/02/18 06:00 Gran # 3.29 (1.4-6.5) 02/02/18 06:00 Lymph # (Auto) 3.1 (1.2-3.4) 02/02/18 06:00 [place] # (Auto) 0.4 (0.1-0.6) 02/02/18 06:00 Eos # (Auto) 0.3 (0.0-0.7) 02/02/18 06:00 Baso # (Auto) 0.01 K/mm3 (0.0-2.0) 02/02/18 06:00 ESR 9 mm/hr (0.0-20.0) 02/01/18 06:55 Sodium 141 mmol/L (132-148) 02/02/18 06:00 Potassium 3.7 mmol/L (3.6-5.0) 02/02/18 06:00 Chloride 108 mmol/L (98-107) H 02/02/18 06:00 Carbon Dioxide 23 mmol/L (21-33) 02/02/18 06:00 Anion Gap 13 (10-20) 02/02/18 06:00 BUN 5 mg/dL (7-21) L 02/02/18 06:00 Creatinine 0.7 mg/dl (0.7-1.2) 02/02/18 06:00 Est GFR ( Amer) > 60 02/02/18 06:00 Est GFR (Non-Af Amer) > 60 02/02/18 06:00 Random Glucose 91 mg/dL (70-110) 02/02/18 06:00 Calcium 8.5 mg/dL (8.4-10.5) 02/02/18 06:00 Magnesium 1.8 mg/dL (1.7-2.2) 02/01/18 00:33 Total Bilirubin 0.5 mg/dL (0.2-1.3) 02/02/18 06:00 AST 30 U/L (14-36) 02/02/18 06:00 ALT 34 U/L (7-56) 02/02/18 06:00 Alkaline Phosphatase 53 U/L (38-126) 02/02/18 06:00 Total Protein 6.3 g/dL (5.8-8.3) 02/02/18 06:00 Albumin 3.4 g/dL (3.0-4.8) 02/02/18 06:00 Globulin 2.9 gm/dL 02/02/18 06:00 Albumin/Globulin Ratio 1.2 (1.1-1.8) 02/02/18 06:00 Lipase 42 U/L (23-300) 02/01/18 00:33 Urine Color Yellow (YELLOW) 02/01/18:25 Urine Appearance Sl cloudy (CLEAR) 02/01/18: Urine pH 6.0 (4.7-8.0) 02/01/18:25 Ur Specific [place] >= 1.030 (1.005-1.035) 02/01/18 Urine Protein >=300 mg/dL (<30 mg/dL) H 02/01/18:25 Urine Glucose (UA) Negative mg/dL (NEGATIVE) 02/01/18 Urine Ketones Trace mg/dL (NEGATIVE) H 02/01/18: Urine Blood Negative (NEGATIVE) 02/01/18: Urine Nitrate Negative (NEGATIVE) 02/01/18: Urine Bilirubin Small (NEGATIVE) H 02/01/18 Urine Urobilinogen 1.0 E.U./dL (<1 E.U./dL) H 02/01/18:25 Ur Leukocyte Esterase Trace [place]/uL (NEGATIVE) H 02/01/18: Urine RBC 0 - 2 /hpf (0-2) 02/01/18: Urine WBC 1 - 3 /hpf (0-6) 02/01/18: Ur Epithelial Cells Many /hpf (0-5) 02/01/18: Urine Bacteria Small (NEG) 02/01/18 Urine HCG, Qual Negative (NEGATIVE) 02/01/18: - Hospital Course Hospital Course: On Admission: 27 year old female with a past medical history of seasonal allergies, gastritis , miscarriage (2015 at 6 weeks) who presents with one day of periumbilical pain , 3 episodes of diarrhea, and nausea. She reports at 8:00 AM developing abdominal pain and nausea when eating her breakfast. This was followed by two episodes of diarrhea. The pain waxed and waned throughout the day and then later recurred at 10:00 PM and therefore she came to the ED. She reports only tolerating crackers, and even in eating those she had nausea and abdominal pain. She took Zantac which did not relieve her symptoms. She reports going out for two events this weekend, a baby shower and another event yesterday in which she drank 5-6 orange budlights. She denies any relieving factors and only states that eating food is an exacerbating factor. She reports having her last period 4 weeks ago. She reports crampy abdominal pain around around her period for which she takes advil for. She reports no fever, chills, vomiting, vaginal bleeding as of yet. She denies any sick contacts, recent travel, chronic constipation, but does admit to eat something out of the ordinary this past weekend. 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 Hospital course: CT scan showed diffuse terminal ileitis. Abdominal US was negative. GI saw the patient. Patient was started on cipro/flagyl and will continue for 7 days as an outpatient. She was encouraged to see GI as out patient for Cscope. Discharge Exam - Head Exam Head Exam: ATRAUMATIC, NORMAL INSPECTION, NORMOCEPHALIC - Eye Exam Eye Exam: EOMI, Normal appearance, PERRL Pupil Exam: NORMAL ACCOMODATION, PERRL - Respiratory Exam Respiratory Exam: Clear to PA & Lateral, NORMAL BREATHING PATTERN, UNREMARKABLE - Cardiovascular Exam Cardiovascular Exam: REGULAR RHYTHM - GI/Abdominal Exam GI & Abdominal Exam: Normal Bowel Sounds, Soft. absent: Distended - Exam Bimanual exam: NORMAL BIMANUAL EXAM - Neurological Exam Neurological exam: Alert, CN II-XII Intact, Normal Gait, Oriented x3, Reflexes Normal - Psychiatric Exam Psychiatric exam: Normal Affect, Normal Mood - Skin Skin Exam: Dry, Intact, Normal Color, Warm Discharge Plan - Discharge Medications Prescriptions: Ciprofloxacin [Cipro] 500 mg PO BID 7 Days tab Metronidazole [Flagyl] 500 mg PO Q8H 7 Days tablet Saccharomyces Boulardi [Florastor] 250 mg PO BID 37 Days cap - Follow Up Plan Condition: STABLE Disposition: HOME/ ROUTINE Additional Instructions: Please follow with Dr. Carmichael as an outpatient in 7-10 days to schedule colonoscopy. I have attached his office information. Please call to make an appointment. Please follow up with your regular Doctor in 7-10 days Please take the following medications: 1. Cipro 500mg twice daily (Breakfast and dinner) for 7 days 2. Flagyl 500mg every 8 hours for 7 days 3. Please take Floraster 250 mg twice a daily 2 hours after breakfast and 2 hours before dinner Referrals: Theresa Medina MD [Primary Care Provider] - Yasmine Carmichael MD [Medical Doctor] -
== END 2018-02-02 15:18 | disposition home or self-care (01) ==
LOC: ED 23:40 → INTOOBSV 02-01 03:34 → ERH 02-01 03:34 → 3RNO 02-01 04:50
PROVIDERS: ADMIT Internal Medicine; ATTEND Hospitalist
DX: K52.9 Noninfective gastroenteritis and colitis, unspecified (principal); K21.9 Gastro-esophageal reflux disease without esophagitis; K29.70 Gastritis, unspecified, without bleeding; I10 Essential (primary) hypertension; F41.9 Anxiety disorder, unspecified; J30.2 Other seasonal allergic rhinitis; Z83.3 Family history of diabetes mellitus; Z80.0 Family history of malignant neoplasm of digestive organs; Z82.49 Family history of ischemic heart disease and other diseases of the circulatory system; Z82.5 Family history of asthma and other chronic lower respiratory diseases; Z88.0 Allergy status to penicillin
CPT/HCPCS: 36415; 74177; 76700; 80053; 81001; 81025; 83690; 83735; 84703; 85025; 85651; 87040; 87045; 87086; 89055; 96365; 96375; 99284; C9113; G0378; J0744; J1885; J2405; J7040; Q9967